=== PATIENT | male | born 1940 | race Hispanic/Latino ===

== ENCOUNTER 2017-06-15 18:37 | Emergency (ER) | payer MEDICARE ==
[2017-06-15 18:38] VITALS: BMI 26.6
[2017-06-15 18:45] VITALS: BP 134/91; PULSE 109; RESP 20; TEMP 97.9; O2SAT 96
--- NOTE | 2017-06-15 19:09 | ED PDOC ---
Arrival/HPI - General Chief Complaint: ENT Problem Time Seen by Provider: 06/15/17 19:01 Historian: Patient, Spouse - History of Present Illness Narrative History of Present Illness (Text): 06/15/17 19:22 77 yo male had piece of hot dog stuck in throat, was drooling and was unable to swallow without pain. He was fully vocalizing with no respiratory distress-- however just prior to my entry into the room all symptoms resolved after patient felt the FB pass into the stomach. He is now symptom free. This has occurred once in the past and the patient is in close follow-up with his physicians. Time/Duration: Prior to Arrival, 1 hour Symptom Onset: Sudden Symptom Course: Resolved Quality: Aching, Tightness Past Medical History - Travel History Have you recently traveled outside [place] w/in the past 3 mons?: No - Patient History Narrative Patient History: small cell lung cancer in remission; treated with xrt and chemotherapy. - Infectious Disease Hx of Infectious Diseases: None - Tetanus Immunization Tetanus Immunization: Unknown - Cardiac Hx Cardiac Disorders: Yes Hx Hypertension: Yes Hx Pacemaker: No Other/Comment: cardiac stent - Pulmonary Hx Respiratory Disorders: No Other/Comment: SMOKED CIGARETTES.STARTED AT 17 YRS OLD QUIT 40 YRS AGO.LUNG CA WITH METS TO SPINE ,ONGOING CHEMO EVERY 21 D. 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) Hx Chemotherapy: Yes (currently rcvg chemo every 21 days) Hx Metastasis: Yes (SPINE) Other/Comment: pt finished radiation oct 08 2012, some lymph node involvement - Integumentary Hx Dermatological Disorder: No - Musculoskeletal/Rheumatological Hx Musculoskeletal Disorders: Yes Hx Arthritis: Yes Hx Back Pain: Yes Hx Falls: No Other/Comment: back of neck pain when coughing - Gastrointestinal Hx Gastrointestinal Disorders: No Hx Diverticulitis: Yes Other/Comment: pt receives chemo every 21 days on a saturday, has hydration on sat, and saturday experiences nausea and constipation and by sat/sun it pases - Genitourinary/Gynecological Hx Genitourinary Disorders: No - Psychiatric Hx Emotional Abuse: No Hx Physical Abuse: No Hx Substance Use: No - Past Surgical History Past Surgical History: Non-Contributing - Surgical History Hx Arthroscopy: Yes (BILATERAL ) Hx Cardiac Catheterization: Yes Hx Carotid Endarterectomy: Yes (LEFT) Hx Coronary Stent: Yes (FEB 2013) Hx Orthopedic Surgery: Yes (bilateral torn meniscus repair) Other/Comment: NASAL SX - Anesthesia Hx Anesthesia: Yes Hx Anesthesia Reactions: No Hx Malignant Hyperthermia: No - Suicidal Assessment Feels Threatened In Home Enviroment: No Family/Social History Family/Social History: No Known Family HX Smoking Status: Former Smoker Hx Alcohol Use: No Hx Substance Use: No Hx Substance Use Treatment: No Allergies/Home Meds Allergies/Adverse Reactions: Allergies No Known Allergies Allergy (Verified 03/12/17 06:26) Home Medications: Home Meds Medication Instructions Recorded Confirmed Metoprolol Tartrate [Lopressor] 25 mg PO BID 12/26/12 06/15/17 Erlotinib HCl [Tarceva] 150 mg PO Q48H 09/17/14 06/15/17 Rosuvastatin Calcium [Crestor] 10 mg PO QPM 09/17/14 06/15/17 Aspirin [Ecotrin] 81 mg PO DAILY 11/10/15 06/15/17 Ergocalciferol (Vitamin D2) 50,000 iu PO SAT 11/10/15 06/15/17 [Vitamin D2] Loperamide [Imodium] 2 mg PO Q48H 11/10/15 06/15/17 Denosumab [Xgeva] 120 mg SC Q30D 01/22/17 06/15/17 Silodosin [Rapaflo] 8 mg PO DAILY 01/22/17 06/15/17 Review of Systems - Review of Systems Constitutional: Normal ENT: Normal Respiratory: Normal Cardiovascular: Normal Gastrointestinal: Normal Neurological: Normal Physical Exam Vital Signs Reviewed: Yes Vital Signs Temp Pulse Resp BP Pulse Ox 06/15/17 18:45 97.9 F 109 H 20 134/91 H 96 Temperature: Afebrile Pulse: Tachycardic Respiratory Rate: Normal Appearance: Positive for: Well-Appearing, Comfortable Pain Distress: None Mental Status: Positive for: Alert and Oriented X 3 - Systems Exam Head: Present: Atraumatic Extroacular Muscles: Present: EOMI Mouth: Present: Moist Mucous Membranes, Normal Tounge Pharnyx: Present: Normal. No: TONSILS ENLARGED, Uvular Deviation, Soft Palate/ Uvular Edema Neck: Present: Normal Range of Motion, Trachea Midline. No: MIDLINE TENDERNESS , Lymphadenopathy Respiratory/Chest: Present: Clear to Auscultation, Good Air Exchange. No: Respiratory Distress, Wheezes Cardiovascular: Present: Regular Rate and Rhythm. No: Murmurs Abdomen: No: Tenderness, Distention Disposition/Present on Arrival - Present on Arrival Any Indicators Present on Arrival: No History of DVT/PE: No History of Uncontrolled Diabetes: No Urinary Catheter: No History of Decub. Ulcer: No History Surgical Site Infection Following: None - Disposition Have Diagnosis and Disposition been Completed?: Yes Diagnosis: Esophageal obstruction due to food impaction Disposition: HOME/ ROUTINE Disposition Time: 19:10 Condition: IMPROVED Additional Instructions: see your doctor to consider further evaluation of the esophagus. Forms: [employer] ([place]se)
== END 2017-06-15 19:10 | disposition home or self-care (01) ==
LOC: ED 18:37
DX: K22.2 Esophageal obstruction (principal)

== ENCOUNTER 2018-07-09 08:30 | Outpatient (CLI) | payer MEDICARE, BC | END 2018-07-09 08:31 | disposition home or self-care (01) | LOC: RAD 08:30 | DX: C34.00 Malignant neoplasm of unspecified main bronchus (principal) ==

== ENCOUNTER 2018-07-30 17:01 | Emergency (ER) | payer MEDICARE, BC ==
[2018-07-30 17:06] VITALS: BMI 27.0
[2018-07-30 17:10] VITALS: RESP 18; O2SAT 97
[2018-07-30 17:37] LABS: BASO # 0.09 K/mm3 (0.0-2.0); BASO % 1.5 % (0.0-3.0); EOS # 0.4 (0.0-0.7); EOS % 6.4 % (1.5-5.0); HEMOGLOBIN 14.4 g/dL (14.0-18.0); LYMPH # 0.8 (1.2-3.4); LYMPH % 12.4 % (22.0-35.0); MEAN CELL VOLUME 87.9 fl (80.0-105.0); MEAN CORPUSCULAR HEMOGLOBIN 29.6 pg (25.0-35.0); MEAN CORPUSCULAR HGB CONC 33.7 g/dl (31.0-37.0); MEAN PLATELET VOLUME 9.3 fl (7.0-11.0); MONO # 0.7 (0.1-0.6); RBC 4.86 10^6/uL (3.5-6.1); RED CELL DISTRIBUTION WIDTH 13.9 % (11.5-14.5); WHITE BLOOD COUNT 6.1 10^3/uL (4.5-11.0)
[2018-07-30 17:44] LABS: INR 0.97; PARTIAL THROMBOPLASTIN TIME 30.1 Seconds (26.9-38.3); PROTHROMBIN TIME 10.8 SECONDS (9.4-12.5)
[2018-07-30 17:45] LABS: PH,URINE 6.5 (4.7-8.0); URINE BILIRUBIN NEGATIVE (NEGATIVE); URINE BLOOD SMALL (NEGATIVE); URINE GLUCOSE (UA) NEGATIVE (NEGATIVE); URINE LEUKOCYTE ESTERASE NEGATIVE Leu/uL (NEGATIVE); URINE PROTEIN NEGATIVE mg/dL (<30 mg/dL); URINE UROBILINOGEN 0.2 E.U./dL (<1 E.U./dL)
[2018-07-30 17:46] LABS: ALB/GLOB RATIO 1.5 (1.1-1.8); ALBUMIN 4.2 g/dL (3.0-4.8); BLOOD UREA NITROGEN 19 mg/dL (7-21); CALCIUM 8.9 mg/dL (8.4-10.5); GFR NON-AFRICAN AMERICAN > 60
[2018-07-30 17:46] LABS: URINE APPEARANCE CLEAR (CLEAR); URINE COLOR YELLOW (YELLOW)
[2018-07-30 17:52] LABS: ALT/SGPT 21 U/L (7-56); AST/SGOT 33 U/L (17-59)
[2018-07-30 17:57] LABS: B-TYPE NATRIURETIC PEPTIDE 104 pg/mL (0-450); TROPONIN I < 0.01 ng/mL
[2018-07-30 18:00] LABS: URINE BACTERIA MOD /hpf
[2018-07-30] MEDS ORDERED: Sodium Chloride 0.9% 1,000 ML IV STA (18:13)
--- NOTE | 2018-07-30 18:13 | ED PDOC ---
Arrival/HPI - General Chief Complaint: Chest Pain Time Seen by Provider: 07/30/18 17:11 Historian: Patient, Spouse - History of Present Illness Narrative History of Present Illness (Text): 07/30/18 19:04 78M w/ h/o of CAD s/p 1 stent, HTN presenting to the Emergency Department for chest pressure ongoing for the last 2 days. The patient states he noted mid- sternal non-radiating chest pressure about 6/10 at home that had been in termittent in nature. He states the chest pain returned after shoveling snow today and proceeded to come to the ED for further evaluation. The patient denies shortness of breath, syncopal episodes, cough, dizziness, nausea, emesis, back pain and abdominal pain. He denies taking any other medication aside from his baby aspirin. PCP: Dr. Bliss Time/Duration: Other (48 hrs) Symptom Onset: Gradual Symptom Course: Unchanged Quality: Pressure Severity Level: 6 Activities at Onset: Rest Context: Home Past Medical History - Provider Review Nursing Documentation Reviewed: Yes - Travel History Have you recently traveled outside [place] w/in the past 3 mons?: No - Infectious Disease Hx of Infectious Diseases: None - Tetanus Immunization Tetanus Immunization: Unknown - Cardiac Hx Cardiac Disorders: Yes Hx Hypertension: Yes - Pulmonary Hx Respiratory Disorders: No - Neurological Hx Neurological Disorder: No - HEENT Hx HEENT Disorder: No - Renal Hx Renal Disorder: No - Endocrine/Metabolic Hx Endocrine Disorders: No - Hematological/Oncological Hx Blood Disorders: Yes Hx Cancer: Yes (lung) - Integumentary Hx Dermatological Disorder: No - Musculoskeletal/Rheumatological Hx Musculoskeletal Disorders: No - Gastrointestinal Hx Gastrointestinal Disorders: No - Genitourinary/Gynecological Hx Genitourinary Disorders: No - Psychiatric Hx Psychophysiologic Disorder: No Hx Substance Use: No - Past Surgical History Past Surgical History: Non-Contributing - Surgical History Other/Comment: laminectomy-fusion 2017,carotid artery-2017,glaucoma bilateral laser - Anesthesia Hx Anesthesia: Yes Hx Anesthesia Reactions: No - Suicidal Assessment Feels Threatened In Home Enviroment: No Family/Social History - Physician Review Nursing Documentation Reviewed: Yes Family/Social History: Unknown Family HX Smoking Status: Former Smoker Hx Alcohol Use: No Hx Substance Use: No Hx Substance Use Treatment: No Allergies/Home Meds Allergies/Adverse Reactions: Allergies No Known Allergies Allergy (Verified 07/30/18 17:09) Home Medications: Home Meds Medication Instructions Recorded Confirmed Metoprolol Tartrate [Lopressor] 50 mg PO BID 12/26/12 07/30/18 Erlotinib HCl [Tarceva] 150 mg PO QOTHERDAY 09/17/14 07/30/18 Aspirin [Ecotrin] 81 mg PO DAILY 11/10/15 07/30/18 Cyclobenzaprine [Flexeril] 10 mg PO TID 07/30/18 07/30/18 Denosumab [Xgeva] 120 mg INJ Q30D 07/30/18 07/30/18 Meloxicam [Mobic] 15 mg PO DAILY 07/30/18 07/30/18 Omeprazole 40 mg PO DAILY 07/30/18 07/30/18 Rosuvastatin Calcium [Crestor] 10 mg PO DAILY 07/30/18 07/30/18 Silodosin [Rapaflo] 8 mg PO DAILY 07/30/18 07/30/18 Review of Systems - Physician Review All systems were reviewed & negative as marked: Yes - Review of Systems Respiratory: absent: SOB, Cough Cardiovascular: Chest Pain. absent: Palpitations Physical Exam Vital Signs Reviewed: Yes Vital Signs Temp Pulse Resp BP Pulse Ox 07/30/18 17:09 97.4 F L 98 H 18 158/90 H 97 Temperature: Afebrile Blood Pressure: Hypertensive Pulse: Regular Respiratory Rate: Normal Appearance: Positive for: Well-Appearing, Non-Toxic, Comfortable Pain Distress: None Mental Status: Positive for: Alert and Oriented X 3 - Systems Exam Head: Present: Atraumatic, Normocephalic Pupils: Present: PERRL Extroacular Muscles: Present: EOMI Conjunctiva: Present: Normal Mouth: Present: Moist Mucous Membranes Neck: Present: Normal Range of Motion Respiratory/Chest: Present: Clear to Auscultation, Good Air Exchange. No: Respiratory Distress Cardiovascular: Present: Regular Rate and Rhythm, Normal S1, S2 Abdomen: Present: Normal Bowel Sounds. No: Tenderness Upper Extremity: Present: Normal Inspection, Capillary Refill < 2s. No: Cyanosis, Edema Neurological: Present: GCS=15, Speech Normal Skin: Present: Warm, Dry, Rashes, Normal Color Psychiatric: Present: Alert, Oriented x 3, Normal Insight, Normal Concentration Medical Decision Making ED Course and Treatment: 07/30/18 19:13 Impression 78M w/ g/o CAD s/p stent presenting with chest pain Differential Diagnoses Include But Are Not Limited To: --ACS --PNA --Bronchitis Plan --Labs --CXR --IV Fluids --Reglan --SL NTG --EKG --UA --Reassess & disposition Progress Notes: 07/30/18 19:23 Labs reviewed with no elevation in troponin or consolidation seen on CXR. Old scar tissue from radiation seen on CXR in which patient confirms and is aware of. Patient has no chest pain when reevaluated and desires to go home. He is advised to follow up with a esthetician makeup artist within the next week and to continue monitoring his symptoms at home. He is stable for discharge. - Lab Interpretations Lab Results: PT 10.8 SECONDS (9.4-12.5) 07/30/18 17:25 INR 0.97 07/30/18 17:25 APTT 30.1 Seconds (26.9-38.3) 07/30/18 17:25 Troponin I < 0.01 ng/mL 07/30/18 17:25 NT-Pro-B Natriuret Pep 104 pg/mL (0-450) 07/30/18 17:25 Total Bilirubin 0.6 mg/dL (0.2-1.3) 07/30/18 17:25 AST 33 U/L (17-59) 07/30/18 17:25 ALT 21 U/L (7-56) 07/30/18 17:25 Alkaline Phosphatase 90 U/L (38-126) 07/30/18 17:25 Total Protein 7.0 g/dL (5.8-8.3) 07/30/18 17:25 Albumin 4.2 g/dL (3.0-4.8) 07/30/18 17:25 Globulin 2.8 gm/dL 07/30/18 17:25 Albumin/Globulin Ratio 1.5 (1.1-1.8) 07/30/18 17:25 Urine Color Yellow (YELLOW) 07/30/18 17:30 Urine Appearance Clear (CLEAR) 07/30/18 17:30 Urine pH 6.5 (4.7-8.0) 07/30/18 17:30 Ur Specific Anthony 1.025 (1.005-1.035) 07/30/18 17:30 Urine Protein Negative mg/dL (<30 mg/dL) 07/30/18 17:30 Urine Glucose (UA) Negative mg/dL (NEGATIVE) 07/30/18 17:30 Urine Ketones Negative mg/dL (NEGATIVE) 07/30/18 17:30 Urine Blood Small (NEGATIVE) H 07/30/18 17:30 Urine Nitrate Negative (NEGATIVE) 07/30/18 17:30 Urine Bilirubin Negative (NEGATIVE) 07/30/18 17:30 Urine Urobilinogen 0.2 E.U./dL (<1 E.U./dL) 07/30/18 17:30 Ur Leukocyte Esterase Negative Marry/uL (NEGATIVE) 07/30/18 17:30 Urine RBC 5 - 10 /hpf (0-2) H 07/30/18 17:30 Urine WBC 5 - 10 /hpf (0-6) H 07/30/18 17:30 Ur Epithelial Cells 6 - 8 /hpf (0-5) H 07/30/18 17:30 Urine Bacteria Mod /hpf (NONE) 07/30/18 17:30 07/30/18 17:25 07/30/18 17:25 Lab Results 07/30/18 17:30: Urine Color Yellow, Urine Appearance Clear, Urine pH 6.5, Ur Specific Anthony 1.025, Urine Protein Negative, Urine Glucose (UA) Negative, Urine Ketones Negative, Urine Blood Small H, Urine Nitrate Negative, Urine Bilirubin Negative, Urine Urobilinogen 0.2, Ur Leukocyte Esterase Negative, Urine RBC 5 - 10 H, Urine WBC 5 - 10 H, Ur Epithelial Cells 6 - 8 H, Urine Bacteria Mod 07/30/18 17:25: Sodium 138, Potassium 4.0, Chloride 103, Carbon Dioxide 28, Anion Gap 11, BUN 19, Creatinine 1.0, Est GFR ( Amer) > 60, Est GFR (Non- Af Amer) > 60, Random Glucose 94, Calcium 8.9, Magnesium 2.0, Total Bilirubin 0.6, AST 33, ALT 21, Alkaline Phosphatase 90, Troponin I < 0.01, NT-Pro-B Natriuret Pep 104, Total Protein 7.0, Albumin 4.2, Globulin 2.8, Albumin/Globulin Ratio 1.5 07/30/18 17:25: PT 10.8, INR 0.97, APTT 30.1 07/30/18 17:25: WBC 6.1, RBC 4.86, Hgb 14.4, Hct 42.7, MCV 87.9, MCH 29.6, MCHC 33.7, RDW 13.9, Plt Count 317, MPV 9.3, Neut % (Auto) 68.7 H, Lymph % (Auto) 12.4 L, Rhea % (Auto) 11.0 H, Eos % (Auto) 6.4 H, Baso % (Auto) 1.5, Lymph # (Auto) 0.8 L, Rhea # (Auto) 0.7 H, Eos # (Auto) 0.4, Baso # (Auto) 0.09, Absolute Neuts (auto) 4.20 I have reviewed the lab results: Yes - RAD Interpretation Radiology Orders: 07/30/18 17:22 CHEST PORTABLE [RAD] Stat - Medication Orders Current Medication Orders: 07/30/18 19:18 Discontinued Medications Sodium Chloride (Sodium Chloride 0.9%) 1,000 mls @ 999 mls/hr IV .Q1H1M STA Stop: 07/30/18 19:13 Last Admin: 07/30/18 18:37 Dose: 999 mls/hr eMAR Start Stop Document 07/30/18 18:37 (Rec: 07/30/18 18:40 [id number] Intravenous Solution Start Date 07/30/18 Start Time 18:40 End Date 07/30/18 End time 19:40 Total Infusion Time 60 Metoclopramide HCl (Reglan) 10 mg IVP STAT STA Stop: 07/30/18 18:14 Last Admin: 07/30/18 18:36 Dose: 10 mg IVP Administration Document 07/30/18 18:36 (Rec: 07/30/18 18:36 [id number]) Charges for Administration # of IVP Administrations 1 Nitroglycerin (Nitrostat Sl Tab) 0.3 mg SL STAT STA Stop: 07/30/18 18:14 Last Admin: 07/30/18 18:33 Dose: 0.3 mg Disposition/Present on Arrival - Present on Arrival Any Indicators Present on Arrival: No History of DVT/PE: No History of Uncontrolled Diabetes: No Urinary Catheter: No History of Decub. Ulcer: No History Surgical Site Infection Following: None - Disposition Have Diagnosis and Disposition been Completed?: Yes Diagnosis: Angina pectoris Disposition: HOME/ ROUTINE Disposition Time: 19:26 Patient Plan: Discharge Condition: IMPROVED Discharge Instructions (ExitCare): Chest Pain (ED), Angina (DC), Medicines for Angina (Chest Pain), Treatment Choices for Angina (Chest Pain) Print Language: [place] Additional Instructions: Please follow up with a esthetician makeup artist within the next 3-5 days Please monitor your symptoms and if chest pain worsens or returns, come back to the Emergency Room for further evaluation Referrals: Kwame Farley MD [Primary Care Provider] - Follow up with primary Saurabh Rosas MD [Staff Provider] - Follow up with primary Forms: [employer] ([place])
[2018-07-30 20:00] VITALS: BP 108/71; PULSE 92; TEMP 97.6
--- NOTE | 2018-07-30 23:07 | CARD ---
APPROVED REPORT Date of service: 07/30/2018 EKG Measurement Heart [id number] <Conclusion> Poor data quality, interpretation may be adversely affected Normal sinus rhythm Poor R wave progression V1-3. Borderline ECG
--- NOTE | 2018-07-31 10:14 | RAD ---
Date of service: 07/30/2018 HISTORY: chest pain COMPARISON: 03/05/2018 FINDINGS: LUNGS: There is linear scarring in the lingular segment of the left upper lobe. This is unchanged. PLEURA: No significant pleural effusion identified, no pneumothorax apparent. CARDIOVASCULAR: No aortic atherosclerotic calcification present. Normal cardiac size. No pulmonary vascular congestion. OSSEOUS STRUCTURES: No significant abnormalities. VISUALIZED UPPER ABDOMEN: Normal. OTHER FINDINGS: None. IMPRESSION: No active disease.
== END 2018-07-30 19:55 | disposition home or self-care (01) ==
LOC: ED 17:01
DX: I20.9 Angina pectoris, unspecified (principal); I10 Essential (primary) hypertension; Z87.891 Personal history of nicotine dependence
CPT/HCPCS: 71045; 80053; 81001; 83735; 83880; 84484; 85025; 85610; 85730; 87086; 93005; 96361; 96374; 99284; J2765; J7030

== ENCOUNTER 2018-09-13 09:23 | Outpatient (CLI) | payer MEDICARE, BC | END 2018-09-13 09:24 | disposition home or self-care (01) | LOC: RAD 09:23 ==

== ENCOUNTER 2018-10-23 18:09 | Emergency (ER) | payer MEDICARE, BC ==
[2018-10-23 18:12] VITALS: BMI 27.0
[2018-10-23] MEDS ORDERED: Glucagon Recombinant 1 mg Inj IV STA (18:24)
[2018-10-23] MEDS ORDERED: Sodium Chloride 0.9% 1,000 ML IV STA (18:24)
[2018-10-23 18:25] VITALS: PULSE 122; RESP 20; TEMP 97.4; O2SAT 97
[2018-10-23 18:33] VITALS: BP 132/93
--- NOTE | 2018-10-23 18:47 | ED PDOC ---
Arrival/HPI - General Chief Complaint: ENT Problem Time Seen by Provider: 10/23/18 18:23 Historian: Patient - History of Present Illness Narrative History of Present Illness (Text): 10/23/18 18:25 A 78 year old male, whose past medical history includes lung cancer, presents to the emergency department complaining of food bolus impaction prior to arrival. Patient was eating hot dogs and sauerkraut when he had a choking sensation and was immediately brought to the hospital. Per family, patient was able to relieve part of the obstruction. Patient's family notes patient has a past medical history of lung cancer with radiation and has scars in his esophagus. Patient denies any fever, chills, shortness of breath, chest pain, diarrhea, nausea, vomiting, urinary symptoms, back pain, neck pain, headache, dizziness, or any other complaints. No PMD Time/Duration: Prior to Arrival Symptom Onset: Sudden Symptom Course: Unchanged Activities at Onset: Light Context: Home Past Medical History - Provider Review Nursing Documentation Reviewed: Yes - Infectious Disease Hx of Infectious Diseases: None - Tetanus Immunization Tetanus Immunization: Unknown - Cardiac Hx Cardiac Disorders: Yes Hx Hypertension: Yes - Pulmonary Hx Respiratory Disorders: No - Neurological Hx Neurological Disorder: No - HEENT Hx HEENT Disorder: No - Renal Hx Renal Disorder: No - Endocrine/Metabolic Hx Endocrine Disorders: No - Hematological/Oncological Hx Blood Disorders: Yes Hx Cancer: Yes (lung) - Integumentary Hx Dermatological Disorder: No - Musculoskeletal/Rheumatological Hx Musculoskeletal Disorders: No - Gastrointestinal Hx Gastrointestinal Disorders: No - Genitourinary/Gynecological Hx Genitourinary Disorders: No - Psychiatric Hx Psychophysiologic Disorder: No Hx Substance Use: No - Past Surgical History Past Surgical History: Non-Contributing - Surgical History Other/Comment: laminectomy-fusion 2017,carotid artery-2017,glaucoma bilateral laser - Anesthesia Hx Anesthesia: Yes Hx Anesthesia Reactions: No - Suicidal Assessment Feels Threatened In Home Enviroment: No Family/Social History - Physician Review Nursing Documentation Reviewed: Yes Family/Social History: No Known Family HX Smoking Status: Former Smoker Hx Alcohol Use: No Hx Substance Use: No Hx Substance Use Treatment: No Allergies/Home Meds Allergies/Adverse Reactions: Allergies No Known Allergies Allergy (Verified 07/30/18 17:09) Home Medications: Home Meds Medication Instructions Recorded Confirmed Metoprolol Tartrate [Lopressor] 50 mg PO BID 12/26/12 07/30/18 Erlotinib HCl [Tarceva] 150 mg PO QOTHERDAY 09/17/14 07/30/18 Aspirin [Ecotrin] 81 mg PO DAILY 11/10/15 07/30/18 Cyclobenzaprine [Flexeril] 10 mg PO TID 07/30/18 07/30/18 Denosumab [Xgeva] 120 mg INJ Q30D 07/30/18 07/30/18 Meloxicam [Mobic] 15 mg PO DAILY 07/30/18 07/30/18 Omeprazole 40 mg PO DAILY 07/30/18 07/30/18 Rosuvastatin Calcium [Crestor] 10 mg PO DAILY 07/30/18 07/30/18 Silodosin [Rapaflo] 8 mg PO DAILY 07/30/18 07/30/18 Review of Systems - Physician Review All systems were reviewed & negative as marked: Yes - Review of Systems Constitutional: absent: Fevers, Other (chills) ENT: Other (food bolus impaction) Respiratory: absent: SOB Cardiovascular: absent: Chest Pain Gastrointestinal: absent: Diarrhea, Nausea, Vomiting Genitourinary Male: absent: Urinary Output Changes Musculoskeletal: absent: Back Pain, Neck Pain Neurological: absent: Headache, Dizziness Physical Exam Vital Signs Reviewed: Yes Vital Signs Temp Pulse Resp BP Pulse Ox 10/23/18 18:33 132/93 H 10/23/18 18:17 97.4 F L 122 H 20 97 Temperature: Hypothermic Pulse: Tachycardic Respiratory Rate: Normal Appearance: Positive for: Uncomfortable Mental Status: Positive for: Alert and Oriented X 3 - Systems Exam Head: Present: Atraumatic, Normocephalic Pupils: Present: PERRL Extroacular Muscles: Present: EOMI Conjunctiva: Present: Normal Pharnyx: Present: Other (no obvious foreign body was visualized within the throat; patient able to speak) Neck: Present: Normal Range of Motion Respiratory/Chest: Present: Clear to Auscultation, Good Air Exchange. No: Respiratory Distress, Accessory Muscle Use Cardiovascular: Present: Regular Rate and Rhythm, Normal S1, S2. No: Murmurs Abdomen: No: Tenderness, Distention, Peritoneal Signs Upper Extremity: Present: Normal Inspection. No: Cyanosis, Edema Lower Extremity: Present: Normal Inspection. No: Edema Neurological: Present: GCS=15, CN II-XII Intact, Speech Normal Skin: Present: Warm, Dry, Normal Color. No: Rashes Psychiatric: Present: Alert, Oriented x 3, Normal Insight, Normal Concentration Medical Decision Making ED Course and Treatment: 10/23/18 18:25 Impression: 78 year old male presenting to the emergency room complaining of food bolus impaction. Plan: -- Labs -- CBC -- Chest X-ray -- Glucagen -- Ativan -- Reglan -- Zofran -- IV fluids -- Reassess and disposition Prior Visits: Notes and results from previous visits were reviewed. Progress Notes: 10/23/18 18:51 Upon re-evaluation, patient states he feels better. - RAD Interpretation Radiology Orders: 10/23/18 18:24 CHEST PORTABLE [RAD] Stat - Medication Orders Current Medication Orders: Sodium Chloride (Sodium Chloride 0.9%) 1,000 mls @ 999 mls/hr IV .Q1H1M STA Stop: 10/23/18 19:24 Last Admin: 10/23/18 18:35 Dose: 999 mls/hr eMAR Start Stop Document 10/23/18 18:35 BB (Rec: 10/23/18 18:35 [id number]) Intravenous Solution Start Date 10/23/18 Start Time 18:35 Discontinued Medications Glucagon (Glucagen Diagnostic Kit) 1 mg IV STAT STA Stop: 10/23/18 18:25 Last Admin: 10/23/18 18:34 Dose: 1 mg eMAR Start Stop Document 10/23/18 18:34 BB (Rec: 10/23/18 18:34 [facility], [id number]) Intravenous Solution Start Date 10/23/18 Start Time 18:34 Ondansetron HCl (Zofran Inj) 4 mg IVP STAT STA Stop: 10/23/18 18:25 Last Admin: 10/23/18 18:34 Dose: 4 mg IVP Administration Document 10/23/18 18:34 BB (Rec: 10/23/18 18:35 [id number]) Charges for Administration # of IVP Administrations 1 - Scribe Statement The provider has reviewed the documentation as recorded by the Johnibsuellen Holguin All medical record entries made by the Scribe were at my direction and personally dictated by me. I have reviewed the chart and agree that the record accurately reflects my personal performance of the history, physical exam, medical decision making, and the department course for this patient. I have also personally directed, reviewed, and agree with the discharge instructions and disposition. Disposition/Present on Arrival - Present on Arrival Any Indicators Present on Arrival: No History of DVT/PE: No History of Uncontrolled Diabetes: No Urinary Catheter: No History of Decub. Ulcer: No History Surgical Site Infection Following: None - Disposition Have Diagnosis and Disposition been Completed?: Yes Diagnosis: Food impaction of esophagus Disposition Time: 19:03 Patient Plan: Discharge Discharge Instructions (ExitCare): Foreign Body, Swallowed, Adult (DC) Print Language: [place] Additional Instructions: All medical record entries made by the Scribe were at my direction and personally dictated by me. I have reviewed the chart and agree that the record accurately reflects my personal performance of the history, physical exam, medical decision making, and the department course for this patient. I have also personally directed, reviewed, and agree with the discharge instructions and disposition. Please follow up with Dr. Tirado Referrals: Kwame Farley MD [Primary Care Provider] - Follow up with primary Jean Tirado MD [Staff Provider] - Follow up with primary Forms: [employer] ([place]ik)
--- NOTE | 2018-10-24 09:16 | RAD ---
Date of service: 10/23/2018 HISTORY: sob COMPARISON: 07/30/2018 TECHNIQUE: 1 view obtained. FINDINGS: LUNGS: Linear infiltrate or scar in the left upper lobe adjacent to the left heart border unchanged. PLEURA: No significant pleural effusion identified, no pneumothorax apparent. CARDIOVASCULAR: No aortic atherosclerotic calcification present. Normal cardiac size. No pulmonary vascular congestion. OSSEOUS STRUCTURES: No significant abnormalities. VISUALIZED UPPER ABDOMEN: Normal. OTHER FINDINGS: None. IMPRESSION: Linear infiltrate or scar in the left upper lobe adjacent to the left heart border unchanged.
== END 2018-10-23 19:19 | disposition home or self-care (01) ==
LOC: ED 18:09
DX: T18.128A Food in esophagus causing other injury, initial encounter (principal); X58.XXXA Exposure to other specified factors, initial encounter; I10 Essential (primary) hypertension; Z87.891 Personal history of nicotine dependence; Z85.118 Personal history of other malignant neoplasm of bronchus and lung
CPT/HCPCS: 71045; 96374; 99283; J1610; J2405; J7030